=== PATIENT | female | born 1990 | race Caucasian/White ===

== ENCOUNTER 2024-08-28 17:32 | Emergency (ER) | payer BC ==
[2024-08-28] MEDS ORDERED: ACETAMINOPHEN INJECTION 100 ML ONE (17:54)
[2024-08-28] MEDS ORDERED: ONDANSETRON 4 MG/2 ML VIAL ONE (17:54)
[2024-08-28 18:06] VITALS: BP 109/73; PULSE 88; RESP 20; TEMP 99.1; BMI 35.2
[2024-08-28] MEDS: ACETAMINOPHEN 1000 MG/100 ML BAG IVPB ONE (18:34)
[2024-08-28] MEDS: ONDANSETRON 4 MG/2 ML VIAL IVPUSH ONE (18:34)
[2024-08-28] MEDS: SODIUM CHLORIDE 0.9% 500 ML INFUS.BAG IV ONE (18:34)
[2024-08-28 18:43] LABS: BASO % 0.3 % (0-2.0); EOS % 0.2 % (0-4.5); HEMOGLOBIN 11.5 GM/dL (10.7-15.3); LYMPH % 34.5 % (8-40); MCH 25.7 pg (25.7-33.7); MEAN CELL VOLUME 80.2 fl (80-96); MEAN PLT VOLUME 7.9 fl (7.5-11.1); MONO % 8.7 % (3.8-10.2); NEUT % 56.3 % (42.8-82.8); PLATELET COUNT 241 10^3/uL (134-434); RBC 4.49 M/mm3 (3.60-5.2); RDW 17.6 % (11.6-15.6)
[2024-08-28 19:11] LABS: POTASSIUM 3.6 mmol/L (3.5-5.1)
[2024-08-28 19:13] LABS: ALBUMIN 3.7 g/dl (3.4-5.0)
[2024-08-28 19:14] LABS: BLOOD UREA NITROGEN 5.7 mg/dL (7-18)
[2024-08-28 19:17] LABS: CREATININE 0.7 mg/dL (0.55-1.3)
[2024-08-28 19:18] LABS: BILIRUBIN,TOTAL 0.2 mg/dL (0.2-1)
== END 2024-08-28 20:25 | disposition home or self-care (01) ==
LOC: JER 17:32
PROC: 3E033NZ Introduction of Analgesics, Hypnotics, Sedatives into Peripheral Vein, Percutaneous Approach (ICD-10-PCS; principal; 2024-08-28)
PROC: 3E033GC Introduction of Other Therapeutic Substance into Peripheral Vein, Percutaneous Approach (ICD-10-PCS; 2024-08-28)
DX: J10.1 Influenza due to other identified influenza virus with other respiratory manifestations (principal); R11.2 Nausea with vomiting, unspecified; R19.7 Diarrhea, unspecified; Z20.822 Contact with and (suspected) exposure to COVID-19
CPT/HCPCS: 0241U-QW; 36415; 80053; 84703; 85025; 99284-25; J0131